=== PATIENT | male | born 1965 | race Caucasian/White ===

== ENCOUNTER → 2016-08-07 | Outpatient (CLI) | payer MEDICARE, OTHER ==
[2016-08-07 12:00] LABS: HEMOGLOBIN 15.8 gm/dl (14.0-17.5); RED BLOOD COUNT 5.02 M/UL (4.20-5.50); WHITE BLOOD COUNT 10.5 K/UL (4.5-11.0)
[2016-08-07 12:22] LABS: BUN/CREATININE RATIO 13 (0-10)
== END ==
LOC: LAB 11:11 → RAD 11:11
PROVIDERS: Family Medicine
DX: Z13.828 Encounter for screening for other musculoskeletal disorder (principal); M25.511 Pain in right shoulder; E11.9 Type 2 diabetes mellitus without complications; E78.5 Hyperlipidemia, unspecified; I10 Essential (primary) hypertension; E55.9 Vitamin D deficiency, unspecified; Z13.9 Encounter for screening, unspecified
CPT/HCPCS: 73030; 73070; 80053; 80061; 83036; 84439; 84443; 85027

== ENCOUNTER → 2021-04-23 | Outpatient (CLI) | payer MEDICARE, OTHER ==
[~2021-04-23] MED LIST: FLAGYL500 MG PO; FLEXERIL 10 MG10 MG PO; K-DUR TAB 10 M10 MEQ PO; LANTUS100 UNIT/1 SQ; LASIX40 MG PO; LEVAQUIN750 MG PO; LORTAB 7.5-3251 EACH PO; NEURONTIN 300300 MG PO; NITROSTAT0.4 MG SL; NORCO 5-325 TA1 EACH PO; PERCOCET 5/325 T1 EA PO; PLAVIX 75 MG TA75 MG PO; TOPROL XL100 MG PO; US Gall Bladder; ZESTRIL40 MG PO; ZOFRAN4 MG PO; [UNRECOGNIZED DRUG - CODE] SQ
== END ==
LOC: HEART 5 10:00
DX: I20.9 Angina pectoris, unspecified (principal); R42 Dizziness and giddiness; I08.1 Rheumatic disorders of both mitral and tricuspid valves; Z95.0 Presence of cardiac pacemaker
CPT/HCPCS: 93306